=== PATIENT | female | born 1985 | race Caucasian/White ===

== ENCOUNTER 2016-06-20 23:24 | Emergency (ER) | payer MEDICAID | END 2016-06-21 01:10 | disposition left against medical advice (07) | LOC: ER 23:24 | DX: Z53.21 Procedure and treatment not carried out due to patient leaving prior to being seen by health care provider (principal) ==

== ENCOUNTER 2016-07-19 00:41 | Emergency (ER) | payer MEDICAID, OTHER ==
[2016-07-19] MEDS ORDERED: LIDOCAINE 1% INJ-PF (10 MG/ML) 30 ML SDV INJ ONE (02:56)
--- NOTE | 2016-07-19 02:56 | ER Document Report ---
ED Hand/Wrist Injury - General Chief Complaint: Thumb Injury Stated Complaint: LACERATION/HAND ACTIVELY BLEEDING Time Seen by Provider: 07/19/16 02:56 Mode of Arrival: Ambulatory Information source: Patient TRAVEL OUTSIDE OF THE [place] IN LAST 30 DAYS: No - HPI Patient complains to provider of: left thumb laceration Injury to: Thumb Onset: Just prior to arrival Where: Home Timing: Constant Quality of pain: Achy Severity: Moderate Pain Level: 3 Context: Laceration Notes: Patient is a 30-year-old female with no past medical history who presents to the emergency room complaining of laceration to left thumb that occurred just prior to arrival but patient was attempting to open a plastic package with a knife when it slipped causing a laceration to the left thumb, she denies any numbness or tingling distally, she denies any difficulty with movement, no injury elsewhere, last tetanus shot is unknown, patient has been bleeding quite a bit at time of triage - Related Data Allergies/Adverse Reactions: No Known Allergies Allergy (Verified 07/19/16 00:53) Past Medical History - General Information source: Patient - Social History Smoking Status: Unknown if Ever Smoked Family History: Arthritis, DM, Hypertension - Past Medical History Cardiac Medical History: Reports: Hx Pulmonary Embolism - 2011 Pulmonary Medical History: Denies: Hx Tuberculosis Renal/ Medical History: Reports: Hx Ectopic , Hx Ovarian Cysts. Denies: Hx Peritoneal Dialysis Past Surgical History: Reports: Hx Gynecologic Surgery. Denies: Hx Pacemaker - Immunizations Immunizations up to date: Yes Hx Diphtheria, Pertussis, Tetanus Vaccination: Yes Review of Systems - Review of Systems Constitutional: No symptoms reported EENT: No symptoms reported Cardiovascular: No symptoms reported Respiratory: No symptoms reported Gastrointestinal: No symptoms reported Genitourinary: No symptoms reported Female Genitourinary: No symptoms reported Musculoskeletal: No symptoms reported Skin: See HPI Hematologic/Lymphatic: No symptoms reported Neurological/Psychological: No symptoms reported -: Yes All other systems reviewed and negative Physical Exam - Vital signs Vitals: Temp Pulse Resp BP Pulse Ox 97.4 F 89 22 H 116/77 98 07/19/16 00:50 07/19/16 00:50 07/19/16 00:50 07/19/16 00:50 07/19/16 00:50 - Notes Notes: - General General appearance: Appears well, Alert In distress: None - HEENT Head: Normocephalic, Atraumatic Eyes: Normal Conjunctiva: Normal Extraocular movements intact: Yes Eyelashes: Normal Pupils: PERRL - Respiratory Respiratory status: No respiratory distress - Cardiovascular Rhythm: Regular - Abdominal Inspection: Normal - Back Back: Normal - Extremities General upper extremity: Left hand with 3 cm U-shaped flap laceration to palmar surface between the MCP and PIP, distal sensation and motor is intact, there is no loss of flexion or extension, there is brisk capillary refill General lower extremity: Normal inspection - Neurological Neuro grossly intact: Yes Orientation: AAOx4 Vida Coma Scale Eye Opening: Spontaneous Markos Coma Scale Verbal: Oriented Markos Coma Scale Motor: Obeys Commands Markos Coma Scale Total: 15 - Psychological Associated symptoms: Normal affect, Normal mood - Skin Skin Temperature: Warm Skin Moisture: Dry Skin Color: Normal Course - Re-evaluation Re-evalutation: 07/19/16 04:10 Patient's wound was repaired using sutures, she was given instructions for wound care and follow-up as well as prophylactic antibiotics and pain medication , advised to return if symptoms worsen, patient acknowledges understanding and agreement with this plan - Vital Signs Vital signs: Temp Pulse Resp BP Pulse Ox 97.4 F 89 22 H 116/77 98 07/19/16 00:50 07/19/16 00:50 07/19/16 00:50 07/19/16 00:50 07/19/16 00:50 Procedures - Laceration/Wound Repair Left Thumb Time completed: 04:10 Wound length (cm): 3 Wound's Depth, Shape: Irregular, Flap Laceration pre-procedure: Sterile PPE donned, Chloraprep applied, Sterile drapes applied Anesthetic type: 1% Lidocaine Volume Anesthetic (mLs): 5 Wound explored: Clean Irrigated w/ Saline (mLs): 300 Wound Repaired With: Sutures Suture Size/Type: 4:0, Nylon Number of Sutures: 9 Post-procedure wound care: Sterile dressing applied Post-procedure NV exam normal: Yes Complications: No Hands front picture: 1 - 3 cm U-shaped laceration Discharge - Discharge Clinical Impression: Thumb laceration Qualifiers: Encounter type: initial encounter Laterality: left Qualified Code(s): S61.012A - Laceration without foreign body of left thumb without damage to nail, initial encounter Condition: Stable Disposition: HOME, SELF-CARE Instructions: Antibiotic Ointment Protection ([facility]), Laceration Care ([facility]), Oral Narcotic Medication ([facility]), Prophylactic Antibiotic ([facility]), Soap Cleansing ( [facility]), Tetanus Immunization Given ([facility]) Additional Instructions: Follow up with your primary care provider in 2-3 days for wound check. Keep wound clean and covered with antibiotic ointment and a clean dressing. Gently rinse with warm water and soap twice daily. Sutures to be removed in 10-14 days. Return to the emergency room immediately if symptoms worsen or any additional concerns. Prescriptions: Cephalexin Monohydrate [Keflex 500 mg Capsule] 500 mg PO BID #20 capsule Hydrocodone/Acetaminophen [Hydrocodon-Acetaminophen 5-325] 1 each PO Q6 #14 tablet Forms: Return to Work
[2016-07-19] MEDS ORDERED: CEPHALEXIN 500 MG CAPSULE PO ONE (02:57)
[2016-07-19] MEDS ORDERED: OXYCODONE-ACETAMINOPHEN 5-325 MG TABLET PO ONE (02:57)
[2016-07-19] MEDS ORDERED: DIPH/PERTUSS(ACELL)/TETANUS VAC/PF 0.5 ML SYR (>=10YO) IM ONE (02:57)
[2016-07-19] MEDS ORDERED: ONDANSETRON HCL INJ/PF 4 MG/2 ML SDV ONE (03:45)
[2016-07-19] MEDS ORDERED: ONDANSETRON 4 MG TAB.RAPDIS ONE (03:46)
[2016-07-19 04:18] VITALS: BP 93/55
== END 2016-07-19 04:19 | disposition home or self-care (01) ==
LOC: ER 00:41
PROC: 0HQGXZZ Repair Left Hand Skin, External Approach (ICD-10-PCS; principal; 2016-07-19)
DX: S61.012A Laceration without foreign body of left thumb without damage to nail, initial encounter (principal); W26.0XXA Contact with knife, initial encounter; Y93.89 Activity, other specified; Y92.009 Unspecified place in unspecified non-institutional (private) residence as the place of occurrence of the external cause
CPT/HCPCS: 99283; 90471; 90715; 12002; S0119

== ENCOUNTER 2017-04-23 20:37 | Emergency (ER) | payer OTHER ==
[2017-04-23 20:44] VITALS: BP 121/72
[2017-04-23 22:35] LABS: AMORPHOUS SEDIMENT,URINE TRACE /HPF; APPEARANCE,URINE CLOUDY; BILIRUBIN,URINE NEGATIVE (NEGATIVE); COLOR,URINE YELLOW; GLUCOSE, URINE NEGATIVE (NEGATIVE); KETONES,URINE NEGATIVE (NEGATIVE); LEUKOCYTE ESTERASE,URINE LARGE (NEGATIVE); NITRITE,URINE POSITIVE (NEGATIVE); PROTEIN,URINE 30 mg/dL (NEGATIVE); URINE SPECIFIC GRAVITY 1.028
[2017-04-23] MEDS ORDERED: PHENAZOPYRIDINE HCL 200 MG TABLET PO ONE (22:50)
[2017-04-23] MEDS ORDERED: CIPROFLOXACIN HCL 500 MG TABLET PO ONE (22:50)
[2017-04-23] MEDS ORDERED: ONDANSETRON ODT 4 MG TAB (6 TAB/ER DISP) PO PRN (22:51)
--- NOTE | 2017-04-23 22:52 | ER Document Report ---
HPI - HPI Patient complains to provider of: UTI Pain Level: 3 Context: Patient is a 31-year-old female presents emergency department complaining of pyuria hematuria that started yesterday but got worse today. She admits to urgency, burning denies any flank pain, vaginal pain, vaginal discharge. Patient states that she had a previous tubal ligation and last menstrual period was in the past month. She admits to mild nausea but denies any vomiting, fevers or chills, abdominal pain - CONSTITUTIONAL Constitutional: DENIES: Fever, Chills - EENT EENT: DENIES: Sore Throat, Ear Pain, Eye problems - NEURO Neurology: DENIES: Headache, Weakness, Vision blurred, Dizzinesss / Vertigo - CARDIOVASCULAR Cardiovascular: DENIES: Chest pain - RESPIRATORY Respiratory: DENIES: Trouble Breathing, Coughing - GASTROINTESTINAL Gastrointestinal: REPORTS: Abdominal Pain - lower. DENIES: Black / Bloody Stools - URINARY Urinary: REPORTS: Dysuria, Urgency, Frequency - REPRODUCTIVE LMP: 04/09/17 Reproductive: REPORTS: : - MUSCULOSKELETAL Musculoskeletal: DENIES: Extremity pain Past Medical History - Social History Smoking Status: Unknown if Ever Smoked Family History: Arthritis, DM, Hypertension Patient has suicidal ideation: No Patient has homicidal ideation: No - Past Medical History Cardiac Medical History: Reports: Hx Pulmonary Embolism - 2011 Pulmonary Medical History: Denies: Hx Tuberculosis Renal/ Medical History: Reports: Hx Ectopic , Hx Ovarian Cysts. Denies: Hx Peritoneal Dialysis Past Surgical History: Reports: Hx Gynecologic Surgery. Denies: Hx Pacemaker - Immunizations Immunizations up to date: Yes Hx Diphtheria, Pertussis, Tetanus Vaccination: Yes Vertical Provider Document - CONSTITUTIONAL Agree With Documented VS: Yes Notes: PHYSICAL EXAM GENERAL: Alert, interacts well. LUNGS: Clear to auscultation bilaterally, no wheezes, rales, or rhonchi. No respiratory distress. HEART: Regular rate and rhythm. No murmurs, gallops, or rubs. ABDOMEN: Soft, nondistended, mild suprapubic tenderness negative for McBurney' s point tenderness, right lower quadrant tenderness. No flank pain, CVA tenderness. No guarding, rebound, or rigidity.. Bowel sounds present in all 4 quadrants. Female exam deferred EXTREMITIES: Moves all 4 extremities spontaneously. No edema, radial and dorsalis pedis pulses 2/4 bilaterally. No cyanosis. NEUROLOGICAL: Alert and oriented x4. Normal speech. PSYCH: Normal affect, normal mood. SKIN: Warm, dry, normal turgor. No rashes or lesions noted. - INFECTION CONTROL TRAVEL OUTSIDE OF THE [place] IN LAST 30 DAYS: No - RESPIRATORY O2 Sat by Pulse Oximetry: 99 Course - Re-evaluation Re-evalutation: 04/23/17 22:52 Patient is a 31-year-old female is hemodynamically stable, no acute distress and afebrile. patient presents with symptoms consistent with an acute cystitis. Vitals wnl. No history of fever, flank pain, or constitution symptoms to suggest ascending infection at this time. Patient is well in appearance, tolerating oral intake without difficulty. No focal abdominal tenderness to suggest acute appendicitis, biliary pathology, acute pancreatitis, tubo-ovarian abscesses, or pelvic inflammatory disease. Patient will be started on antibiotics at this time. A culture has been sent. They will be discharged with return precautions and follow-up recommendations. - Vital Signs Vital signs: Temp Pulse Resp BP Pulse Ox 98.5 F 78 17 121/72 99 04/23/17 20:43 04/23/17 20:43 04/23/17 20:43 04/23/17 20:43 04/23/17 20:43 - Laboratory Laboratory results interpreted by me: 04/23/17 22:15 Urine Protein 30 H Urine Blood LARGE H Urine Nitrite POSITIVE H Urine Urobilinogen 2.0 H Ur Leukocyte Esterase LARGE H Discharge - Discharge Clinical Impression: UTI (urinary tract infection) Qualifiers: Urinary tract infection type: acute cystitis Hematuria presence: with hematuria Qualified Code(s): N30.01 - Acute cystitis with hematuria Condition: Good Disposition: HOME, SELF-CARE Additional Instructions: Your urine shows findings consistent with a urinary tract infection. Please take all the antibiotics as directed even if your symptoms have improved. Please follow-up with your primary care physician as needed. Return to emergency room if you develop fever >101F, persistent vomiting, become lethargic , have severe pain in your sides, or any other symptoms that are concerning to you. Prescriptions: Ciprofloxacin HCl [Cipro 250 mg Tablet] 1 tab PO BID #6 tab Phenazopyridine HCl [Pyridium 200 mg Tablet] 200 mg PO TID #15 tablet Forms: Return to Work Referrals: JOSE ALBERTO THOMSON DO [NO LOCAL MD] - Follow up in 3-5 days
== END 2017-04-23 23:19 | disposition home or self-care (01) ==
LOC: ER 20:37
DX: N30.01 Acute cystitis with hematuria (principal); Z86.711 Personal history of pulmonary embolism
CPT/HCPCS: 99283; 81025; 81001; J3490

== ENCOUNTER 2018-06-01 23:00 | Emergency (ER) | payer OTHER ==
[2018-06-01 23:29] VITALS: BP 119/81
--- NOTE | 2018-06-02 01:09 | ER Document Report ---
ED Medical Screen (RME) - General Chief Complaint: Chest Pain Stated Complaint: HEART PALPITATIONS/CHEST PAIN Time Seen by Provider: 06/02/18 01:00 Notes: 32-year-old female with chief complaint of episodes where she feels like her heart is pounding out of her chest, she will feel tingling sensation in her hands, she felt a pain in her left arm, she felt pain across her chest. This is intermittent. She denies nausea or vomiting, fever or chills, difficulty breathing. She denies smoking, recreational drugs, frequent caffeine. Denies . Past medical history includes pulmonary embolism while she was . Denies other medical history. TRAVEL OUTSIDE OF THE [place] IN LAST 30 DAYS: No - Related Data Allergies/Adverse Reactions: No Known Allergies Allergy (Verified 07/19/16 00:53) Past Medical History - Past Medical History Cardiac Medical History: Reports: Hx Pulmonary Embolism - 2011 Pulmonary Medical History: Denies: Hx Tuberculosis Renal/ Medical History: Reports: Hx Ectopic , Hx Ovarian Cysts. Denies: Hx Peritoneal Dialysis Past Surgical History: Reports: Hx Gynecologic Surgery. Denies: Hx Pacemaker - Immunizations Immunizations up to date: Yes Hx Diphtheria, Pertussis, Tetanus Vaccination: Yes Physical Exam - Vital signs Vitals: Temp Pulse Resp BP Pulse Ox 98.0 F 68 20 119/81 98 06/01/18 23:14 06/01/18 23:14 06/01/18 23:14 06/01/18 23:14 06/01/18 23:14 - General General appearance: Appears well In distress: None - Respiratory Respiratory status: No respiratory distress Breath sounds: Normal - Cardiovascular Rhythm: Regular. No: Tachycardia Heart sounds: Normal auscultation, S1 appreciated, S2 appreciated Course - Re-evaluation Re-evalutation: I have greeted and performed a rapid initial assessment of this patient. A comprehensive ED assessment and evaluation of the patient, analysis of test results and completion of the medical decision making process will be conducted by additional ED providers. - Vital Signs Vital signs: Temp Pulse Resp BP Pulse Ox 98.0 F 68 20 119/81 98 06/01/18 23:14 06/01/18 23:14 06/01/18 23:14 06/01/18 23:14 06/01/18 23:14
[2018-06-02 02:02] LABS: ABSOLUTE EOSINOPHILS # (AUTO) 0.3 10^3/uL (0.0-0.6); ABSOLUTE LYMPHOCYTES (AUTO) 2.2 10^3/uL (0.5-4.7); ABSOLUTE MONOCYTES (AUTO) 0.6 10^3/uL (0.1-1.4); ABSOLUTE NEUT (AUTO) 6.2 10^3/uL (1.7-8.2); BASOPHILS % (AUTO) 0.5 % (0-2); EOSINOPHILS % (AUTO) 2.9 % (0-6); HEMATOCRIT 40.7 % (36.0-47.0); HEMOGLOBIN 13.7 g/dL (12.0-15.5); LYMPHOCYTES % (AUTO) 23.3 % (13-45); MEAN CORPUSCULAR HEMOGLOBIN 30.1 pg (27.0-33.4); MEAN CORPUSCULAR HGB CONC 33.6 g/dL (32.0-36.0); MEAN CORPUSCULAR VOLUME 90 fl (80-97); MONOCYTES % (AUTO) 6.7 % (3-13); PLATELET COUNT 250 10^3/uL (150-450); RED BLOOD COUNT 4.53 10^6/uL (3.72-5.28); RED CELL DISTRIBUTION WIDTH 13.4 % (11.5-14.0); SEGMENTED NEUTROPHILS % (AUTO) 66.6 % (42-78); TOTAL CELLS COUNTED % (AUTO) 100 %; WHITE BLOOD COUNT 9.3 10^3/uL (4.0-10.5)
[2018-06-02 02:05] LABS: APPEARANCE,URINE SLIGHTLY-CLOUDY; BILIRUBIN,URINE NEGATIVE (NEGATIVE); COLOR,URINE YELLOW; GLUCOSE, URINE NEGATIVE (NEGATIVE); KETONES,URINE NEGATIVE (NEGATIVE); LEUKOCYTE ESTERASE,URINE NEGATIVE (NEGATIVE); NITRITE,URINE NEGATIVE (NEGATIVE); PROTEIN,URINE NEGATIVE (NEGATIVE); URINE SPECIFIC GRAVITY 1.027; UROBILINOGEN,URINE NEGATIVE mg/dL (<2.0)
[2018-06-02 02:17] LABS: ANION GAP 8 (5-19); BLOOD UREA NITROGEN 15 mg/dL (7-20); CALCIUM 9.5 mg/dL (8.4-10.2); CARBON DIOXIDE 25 mmol/L (22-30); CHLORIDE 107 mmol/L (98-107); GLUCOSE 104 mg/dL (75-110); POTASSIUM 4.7 mmol/L (3.6-5.0); SODIUM 140.4 mmol/L (137-145)
--- NOTE | 2018-06-02 02:24 | RADIOLOGY REPORT (SQ) ---
EXAM DESCRIPTION: XR CHEST 1 VIEW COMPLETED DATE/TME: 06/02/2018 01:01 CLINICAL HISTORY: 32 years Female, chest pain COMPARISON:Apr 16 2014 NUMBER OF VIEWS/TECHNIQUE: 1/AP FINDINGS: Adequate lung volume, clear parenchyma, normal cardiac silhouette, and thoracic dextroconvexity. IMPRESSION: No acute cardiopulmonary findings.
[2018-06-02 02:34] LABS: FREE T4 (FREE THYROXINE) 0.87 ng/dL (0.78-2.19)
[2018-06-02 02:48] LABS: THYROID STIMULATING HORMONE 2.33 uIU/mL (0.47-4.68)
--- NOTE | 2018-06-02 03:58 | ER Document Report ---
ED General - General Chief Complaint: Chest Pain Stated Complaint: HEART PALPITATIONS/CHEST PAIN Time Seen by Provider: 06/02/18 01:00 Primary Care Provider: RADHA BEARD MD [ACTIVE STAFF] - Follow up tomorrow Notes: Patient is a 32-year-old female with a past medical history of a DVT pulmonary embolus while in 2011 history since, no other chronic medical problems presenting with 2 weeks of intermittent palpitations. States episodes occur randomly, are associated with episodes of sharp chest pain that is severe in nature. Episodes last several minutes to seconds and then spontaneously resolved. No history of prior to the past 2 weeks. Has not seen her primary doctor regarding today's concerns. Denies any other associated symptoms such as nausea, vomiting, shortness of breath or weight loss. No trauma to the chest. TRAVEL OUTSIDE OF THE [place] IN LAST 30 DAYS: No - HPI Onset: Other - 2 weeks ago Onset/Duration: Intermittent Quality of pain: Achy Severity: Severe Pain Level: 3 Associated symptoms: Other - Palpitations Exacerbated by: Denies Relieved by: Denies Similar symptoms previously: Yes Recently seen / treated by doctor: No - Related Data Allergies/Adverse Reactions: No Known Allergies Allergy (Verified 07/19/16 00:53) Past Medical History - General Information source: Patient - Social History Smoking Status: Never Smoker Frequency of alcohol use: None Drug Abuse: None Lives with: Spouse/Significant other Family History: Arthritis, DM, Hypertension Patient has suicidal ideation: No Patient has homicidal ideation: No - Past Medical History Cardiac Medical History: Reports: Hx Pulmonary Embolism - 2011 Pulmonary Medical History: Denies: Hx Tuberculosis Renal/ Medical History: Reports: Hx Ectopic , Hx Ovarian Cysts. Denies: Hx Peritoneal Dialysis Past Surgical History: Reports: Hx Gynecologic Surgery. Denies: Hx Pacemaker - Immunizations Immunizations up to date: Yes Hx Diphtheria, Pertussis, Tetanus Vaccination: Yes Review of Systems - Review of Systems Notes: Constitutional: Negative for fever. HENT: Negative for sore throat. Eyes: Negative for visual changes. Cardiovascular: Positive for palpitations, chest pain Respiratory: Negative for shortness of breath. Gastrointestinal: Negative for abdominal pain, vomiting or diarrhea. Genitourinary: Negative for dysuria. Musculoskeletal: Negative for back pain. Skin: Negative for rash. Neurological: Negative for headaches, weakness or numbness. 10 point ROS negative except as marked above and in HPI. Physical Exam - Vital signs Vitals: Temp Pulse Resp BP Pulse Ox 98.0 F 68 20 119/81 98 06/01/18 23:14 06/01/18 23:14 06/01/18 23:14 06/01/18 23:14 06/01/18 23:14 Interpretation: Normal Notes: PHYSICAL EXAMINATION: GENERAL: Well-appearing, well-nourished and in no acute distress. HEAD: Atraumatic, normocephalic. EYES: Pupils equal round and reactive to light, extraocular movements intact, sclera anicteric, conjunctiva are normal. ENT: nares patent, oropharynx clear without exudates. Moist mucous membranes. NECK: Normal range of motion, supple without lymphadenopathy LUNGS: Breath sounds clear to auscultation bilaterally and equal. No wheezes rales or rhonchi. HEART: Regular rate and rhythm without murmurs ABDOMEN: Soft, nontender, normoactive bowel sounds. No guarding, no rebound. No masses appreciated. EXTREMITIES: Normal range of motion, no pitting or edema. No cyanosis. NEUROLOGICAL: No focal neurological deficits. Moves all extremities spontaneously and on command. PSYCH: Normal mood, normal affect. SKIN: Warm, Dry, normal turgor, no rashes or lesions noted. Course - Re-evaluation Re-evalutation: 06/02/18 03:55 Patient presents with palpitations but is in no acute distress. Vitals within normal limits at time of arrival. EKG unremarkable with a normal sinus rhythm. Laboratories are unremarkable. Patient has had some chest pain with palpitation but only when present with palpitations. Troponin negative. At this time based on exam and history do not suspect a new onset arrhythmia, ACS, acute pulmonary embolus, aortic dissection. Patient has a history of a PE when she was 7 years ago, states this feels nothing like that and has no additional signs or symptoms, vital sign derangements or any other clinical features that would suggest repeat of this diagnosis. Patient encouraged to follow-up with their primary care physician as well as cardiology and a referral has been provided. At this time will discharge with return precautions and follow-up recommendations. Verbal discharge instructions given a the bedside and opportunity for questions given. Medication warnings reviewed. Patient is in agreement with this plan and has verbalized understanding of return precautions and the need for primary care follow-up in the next 24-72 hours. - Vital Signs Vital signs: Temp Pulse Resp BP Pulse Ox 98.0 F 68 20 119/81 96 06/01/18 23:14 06/01/18 23:14 06/01/18 23:14 06/01/18 23:14 06/02/18 02:00 - Laboratory Result Diagrams: 06/02/18 01:43 06/02/18 01:43 - Diagnostic Test Radiology reviewed: Image reviewed, Reports reviewed Radiology results interpreted by me: 06/02/18 03:56 Chest x-ray: No acute infiltrate or pneumothorax is - EKG Interpretation by Me Additional EKG results interpreted by me: 06/02/18 03:56 Sinus rhythm, rate 67. No ST elevations or depressions. QTC is 423. Discharge - Discharge Clinical Impression: Palpitations, Chest discomfort Condition: Good Disposition: HOME, SELF-CARE Additional Instructions: You were seen today for chest pain and palpitations. The exact cause of your pain is unclear. However, based on your cardiac enzyme testing, chest x-ray, and EKG it does not appear that it is from an immediately life-threatening cause at this time. Although your testing here is normal is critical that you follow-up with your primary care physician for continued evaluation of this chest pain and possible stress testing as well as cardiac monitoring as an outpatient. I recommended you see your physician within the next 24-48 hours to be evaluated for consideration of a stress test. Please return to emergency department immediately if you have worsening of your chest pain, shortness of breath, vomiting, become unable to exert yourself due to pain or difficulty breathing, you pass out, or have any pain that radiates into your arms, jaw, or back. Please also return if you have any additional symptoms that are concerning to you. Referrals: RADHA BEARD MD [ACTIVE STAFF] - Follow up tomorrow
--- NOTE | 2018-06-02 23:42 | EKG REPORT ---
SEVERITY:- NORMAL ECG - SINUS RHYTHM : Confirmed by: Gustabo Michel 02-Jun-2018 23:41:11
== END 2018-06-02 05:44 | disposition home or self-care (01) ==
LOC: ER 23:00
DX: R00.2 Palpitations (principal); R07.9 Chest pain, unspecified; Z86.711 Personal history of pulmonary embolism; Z86.718 Personal history of other venous thrombosis and embolism
CPT/HCPCS: 36415; 71045; 80048; 81001; 81025; 84439; 84443; 84484; 85025; 93005; 93010; 99285

== ENCOUNTER → 2018-06-24 | Outpatient (CLI) | payer OTHER ==
--- NOTE | 2018-06-24 19:53 | XCELERA REPORT ---
[address] [place] [facility] [address] Lower Extremity Venous Evaluation Procedure: Color flow and duplex imaging of the veins of the right lower extremity as well as the left Common Femoral vein. Right Sided Venous Evaluation Normal vessel filling wall to wall, compression and augmentation as well as Colour flow down to the infrageniculate veins. Left Sided Venous Evaluation The left common femoral vein is fully compressible. Spontaneous and phasic flow is present in the left common femoral vein. Interpretation Summary No duplex evidence of DVT or obstruction in the right lower extremity nor in the left Common Femoral vein. Name: JANE WILKESEmani Singh Age: 32 yrs Gender: Female : 1985 Patient Status: Outpatient Patient Location: Study Date: 06/24/2018 03:27 PM Reason For Study: PAIN IN RIGHT LEG Ordering Physician: RANDA MAHMOOD Performed By: Beau Samuels : RANDA MAHMOOD > Corbin Euceda
== END ==
LOC: SP 14:39
PROVIDERS: ATTEND Student in an Organized Health Care Education/Training Program
DX: M79.661 Pain in right lower leg (principal)
CPT/HCPCS: 93971

== ENCOUNTER 2019-04-20 19:26 | Emergency (ER) | payer OTHER ==
[2019-04-20] MEDS ORDERED: SULFAMETHOXAZOLE/TRIMETHOPRIM 800-160 MG TABLET PO ONE (20:13)
--- NOTE | 2019-04-20 20:15 | ER Document Report ---
ED Medical Screen (RME) - General Chief Complaint: Abscess Stated Complaint: POSS ABSCESS UNDER RIGHT ARM Time Seen by Provider: 04/20/19 20:08 Primary Care Provider: RANDA MAHMOOD MD [Primary Care Provider] - Follow up as needed Notes: Patient is a 33-year-old female who presents emergency department with a chief complaint of abscess. Patient reports 2 days ago developing a small knot underneath the right arm. Patient reports it is become more tender and larger. Patient reports she feels like it is deep. 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 States it started to ooze a small amount today. Patient reports she feels like it needs to be cut open and placed on antibiotics. TRAVEL OUTSIDE OF THE [place] IN LAST 30 DAYS: No - Related Data Allergies/Adverse Reactions: No Known Allergies Allergy (Verified 07/19/16 00:53) Past Medical History - Past Medical History Cardiac Medical History: Reports: Hx Pulmonary Embolism - 2011 Pulmonary Medical History: Denies: Hx Tuberculosis Renal/ Medical History: Reports: Hx Ectopic , Hx Ovarian Cysts. Denies: Hx Peritoneal Dialysis Past Surgical History: Reports: Hx Gynecologic Surgery. Denies: Hx Pacemaker - Immunizations Immunizations up to date: Yes Hx Diphtheria, Pertussis, Tetanus Vaccination: Yes Physical Exam - Vital signs Vitals: Temp Pulse Resp BP Pulse Ox 98.2 F 64 16 120/72 100 04/20/19 19:48 04/20/19 19:48 04/20/19 19:48 04/20/19 19:48 04/20/19 19:48 Course - Re-evaluation Re-evalutation: 04/20/19 20:14 Patient has a small 2 x 2 centimeter firm, tender area underneath the right axilla. Small amount of drainage noted. - Vital Signs Vital signs: Temp Pulse Resp BP Pulse Ox 98.2 F 64 16 120/72 100 04/20/19 19:48 04/20/19 19:48 04/20/19 19:48 04/20/19 19:48 04/20/19 19:48 Doctor's Discharge - Discharge Referrals: RANDA MAHMOOD MD [Primary Care Provider] - Follow up as needed
[2019-04-20] MEDS ORDERED: LIDOCAINE 1% INJ (10 MG/ML) 10 ML MDV INJ ONE (22:37)
--- NOTE | 2019-04-20 22:49 | ER Document Report ---
ED General - General Chief Complaint: Abscess Stated Complaint: POSS ABSCESS UNDER RIGHT ARM Time Seen by Provider: 04/20/19 20:08 Primary Care Provider: RANDA MAHMOOD MD [ACTIVE STAFF] - Follow up as needed Mode of Arrival: Ambulatory Information source: Patient TRAVEL OUTSIDE OF THE [place] IN LAST 30 DAYS: No - HPI Onset: Other - over the last few days Onset/Duration: Gradual Quality of pain: Sharp Severity: Moderate Pain Level: 2 Associated symptoms: None Exacerbated by: Other - movement of her right arm Relieved by: Denies Similar symptoms previously: Yes - on other parts of her body but not in her arm pit Recently seen / treated by doctor: No Notes: 33 year old female with a history of prior skin abscesses here for a painful, red, swollen area under her right arm for the past several days. The patient has had skin abscesses before and this feels the same to her. The patient denies fevers, chills, sweats, nausea, vomiting, or other systemic symptoms. The patient has been able to express a small amount o purulent material from the air when squeezing it. - Related Data Allergies/Adverse Reactions: No Known Allergies Allergy (Verified 07/19/16 00:53) Past Medical History - General Information source: Patient - Social History Smoking Status: Never Smoker Frequency of alcohol use: Occasional Drug Abuse: None Family History: Arthritis, DM, Hypertension Patient has suicidal ideation: No Patient has homicidal ideation: No - Past Medical History Cardiac Medical History: Reports: Hx Pulmonary Embolism - 2011 Pulmonary Medical History: Denies: Hx Tuberculosis Renal/ Medical History: Reports: Hx Ectopic , Hx Ovarian Cysts. Denies: Hx Peritoneal Dialysis Past Surgical History: Reports: Hx Gynecologic Surgery - tubes removed. Denies: Hx Pacemaker - Immunizations Immunizations up to date: Yes Hx Diphtheria, Pertussis, Tetanus Vaccination: Yes Review of Systems - Review of Systems Constitutional: No symptoms reported EENT: No symptoms reported Cardiovascular: No symptoms reported Respiratory: No symptoms reported Gastrointestinal: No symptoms reported Genitourinary: No symptoms reported Female Genitourinary: No symptoms reported Musculoskeletal: No symptoms reported Skin: Other - Abscess/swollen gland in right arm pit (red tender swollen area) Hematologic/Lymphatic: No symptoms reported Neurological/Psychological: No symptoms reported -: Yes All other systems reviewed and negative Physical Exam - Vital signs Vitals: Temp Pulse Resp BP Pulse Ox 98.2 F 64 16 120/72 100 04/20/19 19:48 04/20/19 19:48 04/20/19 19:48 04/20/19 19:48 04/20/19 19:48 - Notes Notes: GENERAL: Well-appearing, well-nourished and in no acute distress. HEAD: Atraumatic, normocephalic. EYES: Pupils equal round and reactive to light, extraocular movements intact, sclera anicteric, conjunctiva are normal. ENT: Nares patent, oropharynx clear without exudates. Moist mucous membranes. NECK: Normal range of motion, supple without lymphadenopathy or JVD. LUNGS: Breath sounds clear to auscultation bilaterally and equal. No wheezes rales or rhonchi. HEART: Regular rate and rhythm without murmurs, rubs or gallops. ABDOMEN: Soft, nontender, normoactive bowel sounds. No guarding, no rebound. No masses appreciated. EXTREMITIES: Normal range of motion, no pitting or edema. No clubbing or cyanosis. NEUROLOGICAL: Cranial nerves II through XII grossly intact. Normal speech, normal gait. PSYCH: Normal mood, normal affect. SKIN: Pea sized area of erythema., warmth, swelling, and tenderness in right axilla without drainage but the area comes to head. Warm, Dry, normal turgor, no rashes or lesions noted. Course - Re-evaluation Re-evalutation: 04/20/19 22:50 The patient has hidradenitis fo her right arm pit which was acutely infected. The patient requested I perform an I&D which I did. Small amount of pus and cystic material was expressed and patient felt much better after. Will have patient take a course of Bactrim and follow up with General Surgery if the area returns. - Vital Signs Vital signs: Temp Pulse Resp BP Pulse Ox 98.2 F 64 16 120/72 100 04/20/19 19:48 04/20/19 19:48 04/20/19 19:48 04/20/19 19:48 04/20/19 19:48 Procedures - Incision and Drainage Right Axilla Type: Simple Anesthetic type: 1% Lidocaine mL's of anesthetic: 2 Blade size: 11 I&D procedure: Chlorprep applied Incision Method: Incision made by scalpel Discharge - Discharge Clinical Impression: Hidradenitis suppurativa of right axilla Condition: Stable Disposition: HOME, SELF-CARE Instructions: Abscess ([facility]) Additional Instructions: Take Bactrim as prescribed. Use Tylenol and Motrin for pain. Follow up with a Surgeon for definitive management if the swollen area returns. Prescriptions: Sulfamethoxazole/Trimethoprim [Bactrim Ds Tablet] 1 tab PO BID #14 tablet Referrals: RANDA MAHMOOD MD [ACTIVE STAFF] - Follow up as needed ROLAN TURNER MD [ACTIVE STAFF] - Follow up as needed
[2019-04-20 23:25] VITALS: BP 126/68
== END 2019-04-20 23:16 | disposition home or self-care (01) ==
LOC: ER 19:26
PROC: 0H9BXZZ Drainage of Right Upper Arm Skin, External Approach (ICD-10-PCS; principal; 2019-04-20)
DX: L73.2 Hidradenitis suppurativa (principal)
CPT/HCPCS: 99283